=== PATIENT | male | born 1985 | race Caucasian/White ===

== ENCOUNTER 2021-09-01 17:55 | Outpatient (CLI) | payer BC, OTHER ==
--- NOTE | 2021-09-01 18:31 | XRAY Report ---
PROCEDURE: Foot 3 View RT INDICATIONS: FRACTURE OF UNSPECIFIED METATARSAL BONES, RIGHT FOOT TECHNIQUE: 3 views of the foot were acquired. COMPARISON: None. FINDINGS: BONES: Displaced fracture of the fifth metatarsal base. The remaining visualized osseous structures a ppear maintained SOFT TISSUES: Edema about the fracture site IMPRESSION: 1.Displaced fracture of the fifth metatarsal base. Reviewed by: Michael Levine MD on 09/01/2021 6:30 PM PDT Approved by: Michael Levine MD on 09/01/2021 6:30 PM PDT Station ID: [id number]
--- NOTE | 2021-09-01 18:32 | XRAY Report ---
PROCEDURE: Ankle 3 View RT INDICATIONS: ANKLE JOINT PAIN, RIGHT TECHNIQUE: 3 views of the ankle were acquired. COMPARISON: None. FINDINGS: BONES: Displaced fracture of the fifth metatarsal base. The ankle mortise is maintained on these non stressed views. SOFT TISSUES: Edema about the fracture site IMPRESSION: 1.Displaced fracture of the fifth metatarsal base. Reviewed by: Michael Levine MD on 09/01/2021 6:31 PM PDT Approved by: Michael Levine MD on 09/01/2021 6:31 PM PDT Station ID: [id number]
== END 2021-09-01 23:59 | disposition home or self-care (01) ==
LOC: DI.N 17:55
PROVIDERS: ATTEND Nurse Practitioner Family
DX: S92.351A Displaced fracture of fifth metatarsal bone, right foot, initial encounter for closed fracture (principal)

== ENCOUNTER 2021-10-17 06:00 | Outpatient (CLI) | payer BC ==
--- NOTE | 2021-10-17 17:33 | XRAY Report ---
PROCEDURE: Foot 3 View RT INDICATIONS: FOOT PAIN TECHNIQUE: 3 weightbearing views of the foot were acquired. COMPARISON: 09/01/2021 FINDINGS: Bones: Redemonstration of mildly displaced base of right fifth metatarsal fracture. Increased sclero sis and decreased fracture conspicuity compatible with reactive changes of fracture healing. No acute fractures or dislocations. No suspicious bony lesions. Soft tissues: No tibiotalar joint effusion. Achilles tendon appears normal. IMPRESSION: Stable alignment of mildly displaced base of right fifth metatarsal fracture with findings compatible with progress towards fracture healing. Reviewed by: Ariel Strange MD on 10/17/2021 5:31 PM PDT Approved by: Ariel Strange MD on 10/17/2021 5:31 PM PDT Station ID: [id number]
== END 2021-10-17 23:59 | disposition home or self-care (01) ==
LOC: DI.WOS 06:00
PROVIDERS: ATTEND Orthopaedic Surgery
DX: S92.351D Displaced fracture of fifth metatarsal bone, right foot, subsequent encounter for fracture with routine healing (principal)

== ENCOUNTER 2021-11-13 18:21 | Emergency (ER) | payer BC ==
[2021-11-13 18:28] VITALS: BP 125/71
--- OUTSIDE RECORDS SUMMARY | 2021-11-13 18:40 | EXTERNAL MEDICAL SUMMARY RPT | Continuity of Care Document ---
:1985 Author Organization [place] Address [address] [place] [address] Phone Allergies No information. Encounters No information. Functional Status No information. Immunizations No information. Medications No information. Problems No information. Procedures date description facility [id number] XR ANKLE COMPLETE MIN 3 VIEWS All [id number] XR FOOT COMPLETE MIN 3 VIEW All Results/Labs No information. Social History date description facility [id number] Never smoker All Vital Signs date measurement value units [id number]+0000 BMI BMI 22.04 kg/m2 33752157554341+0000 BP_diastolic BP_diastolic 88 mm[H g] 53370449554178+0000 BP_systolic BP_systolic 144 mm[Hg] 68002964965280+0000 heart_rate heart_rate 82 /min 66797031103126+0000 height_metric height_metric 194.94 cm [id number]+0000 height_standard height_standard 76.75 in [id number]+0000 respiration_rate respiration_rate 18 /min 69178117639524+0000 temperature_metric temperature_metric 36.78 C [id number]+0000 temperature_standard temperature_standard 9 8.2 F 51355988595053+0000 weight_metric weight_metric 83.46 kg 01563065292122+0000 weight_standard weight_standard 184 lb
[2021-11-13] MEDS ORDERED: SODIUM CHLORIDE 0.9% 1,000 ML IV STA (19:12)
--- NOTE | 2021-11-13 19:24 | ED Physician Documentation ---
History of Present Illness - Stated complaint Stated Complaint: FATIGUE,DIZZY,NAUSEA - Chief complaint Chief Complaint: General - History obtained from History obtained from: Patient - Additonal information Additional information: 36-year-old gentleman presents for what he thinks is heat exhaustion. 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 He never threw up. He is feeling better now. He took his blood pressure at home and was noted to be in the 40s for the diastolic, also better now. He drink plenty of fluids prior to arrival. Review of Systems Constitutional: denies: Fever, Chills, Fatigue Nose: denies: Rhinorrhea / runny nose Respiratory: denies: Dyspnea, Cough PD PAST MEDICAL HISTORY - Allergies Allergies/Adverse Reactions: Allergies Allergy/AdvReac Type Severity Reaction Status Date / Time No Known Drug Allergies Allergy Verified 11/13/21 18:28 PD ED PE NORMAL - Vitals Vital signs reviewed: Yes - General General: Alert and oriented X 3, No acute distress - HEENT HEENT: Pharynx benign - Neck Neck: Supple, no meningeal sign, No bony TTP - Cardiac Cardiac: Other (3 out of 6 to 4 out of 6 decrescendo systolic heart murmur heard best at the apex) - Respiratory Respiratory: No respiratory distress, Clear bilaterally - Abdomen Abdomen: Normal bowel sounds, Soft, Non tender - Derm Derm: Normal color, Warm and dry - Extremities Extremities: No edema, No calf tenderness / cord - Neuro Neuro: Alert and oriented X 3, Normal speech Results - Vitals Vitals: Vital Signs - 24 hr 11/13/21 18:24 Temperature 37 C Heart Rate 97 Respiratory 14 Rate Blood Pressure 125/71 O2 Saturation 98 Oxygen O2 Source Room air PD MEDICAL DECISION MAKING - ED course ED course: 36-year-old gentleman presents for what he thinks is heat exhaustion with resolved symptoms. I offered labs and IV fluids which he declined after discussion. He is noted to have a heart murmur not previously known to the patient and discussed the need for follow-up for this. Departure - Departure Disposition: Home, Self Care Clinical Impression: Heat exhaustion Condition: Good Record reviewed to determine appropriate education?: Yes Instructions: ED Exhaustion Heat Comments: As discussed, you do have an incidental systolic murmur heart murmur, you should follow-up with your primary care physician for evaluation of this. Drink plenty of fluids this evening and take it easy.
== END 2021-11-13 19:30 | disposition home or self-care (01) ==
LOC: ED 18:21
DX: T67.5XXA Heat exhaustion, unspecified, initial encounter (principal); X30.XXXA Exposure to excessive natural heat, initial encounter; Y93.E9 Activity, other interior property and clothing maintenance; Y99.0 Civilian activity done for income or pay
CPT/HCPCS: 80053; 82550; 83735; 85025; 99281; 99282

== ENCOUNTER 2023-10-02 21:28 | Emergency (ER) | payer BC, OTHER ==
[2023-10-02 21:35] VITALS: BP 135/90; O2SAT 99
[2023-10-02] MEDS ORDERED: lidocaine 1% 20 ML MDV SUBQ ONE (21:39)
--- NOTE | 2023-10-02 21:43 | ED Physician Documentation ---
PD HPI UPPER EXT INJURY - Stated complaint Stated Complaint: L FINGER LAC - Chief complaint Chief Complaint: Laceration - History obtained from History obtained from: Patient - Additonal information Additional information: Patient is a 38-year-old male who is right-hand dominant presenting for evaluation of laceration to his right index finger. Patient states he excellently cut his finger while cutting onions. He is unsure of his last tetanus. Does not take blood thinners. Review of Systems Skin: reports: Laceration (s) PD PAST MEDICAL HISTORY - Past Medical History Past Medical History: No Cardiovascular: None Respiratory: None Neuro: None Endocrine/Autoimmune: None GI: None : None HEENT: None Psych: None Musculoskeletal: None Derm: None - Past Surgical History Past Surgical History: No - Allergies Allergies/Adverse Reactions: Allergies Allergy/AdvReac Type Severity Reaction Status Date / Time No Known Drug Allergies Allergy Verified 10/02/23 21:31 - Social History Does the pt smoke?: No Smoking Status: Never smoker Does the pt drink ETOH?: No - Immunizations Immunizations: TDAP >10years/unknown - POLST Patient has POLST: No PD ED PE NORMAL - General General: Alert and oriented X 3, No acute distress, Well developed/nourished - HEENT HEENT: Atraumatic - Extremities Extremities: Other (1 cm laceration to the distal left index finger on the lateral volar aspect; Normal range of motion at all joints, no nailbed involve ment.) Results - Vitals Vitals: Vital Signs - 24 hr 10/02/23 10/02/23 10/02/23 21:31 21:55 22:35 Temperature 36.8 C Heart Rate 73 Respiratory 16 16 17 Rate Blood Pressure 135/90 H O2 Saturation 99 Oxygen O2 Source Room air Procedures - Laceration (location) Left index finger Length in cm: 1 Wound type: Linear Neurovascular status: Sensory intact, Motor intact, Vascular intact Tendon involvement: Tendon intact Anesthesia: Lidocaine 1% Wound preparation: Hibiclens, Irrigated copiously NS Skin layer closure: Size #-0 - enter number (4-0 Ethilon), Sutures - enter # (2) Other: Patient tolerated well, No complications, Neurovascular intact, Dressing applied, Tetanus booster given PD Medical Decision Making - ED course ED course: Patient with laceration to left index finger. Neurovascularly intact. No nailbed injury. Tetanus booster was given. Wound was cleaned and sutured. Patient advised on wound care instructions as well as need to return for suture removal. Advised on concerning symptoms to return for such as signs of infection. Departure - Departure Disposition: 01 Home, Self Care Clinical Impression: Laceration of finger Condition: Stable Instructions: ED Laceration Ext Sutr Stap Tape Comments: Come back for any signs of infection which would include: Redness, swelling, drainage, increased pain, or fevers. You can wash it soap and water. Keep it covered and moist with bacitracin ointment which is available over the counter; avoid neosporin. Follow-up with your physician in about 10 days for suture removal. Forms: PCP List Discharge Date/Time: 10/02/23 22:36
[2023-10-02] MEDS: TETANUS/DIPHTHERIA/PERTUSSIS 0.5 ML SYRINGE IM ONE (22:00)
== END 2023-10-02 22:36 | disposition home or self-care (01) ==
LOC: ED 21:28
DX: S61.210A Laceration without foreign body of right index finger without damage to nail, initial encounter (principal); W26.0XXA Contact with knife, initial encounter; Y93.G1 Activity, food preparation and clean up; Z23 Encounter for immunization
CPT/HCPCS: 12001; 90471; 99283